=== PATIENT | male | born 1995 | race Caucasian/White ===

== ENCOUNTER → 2020-06-09 12:56 | Outpatient (CLI) | payer OTHER, SELFPAY ==
[2020-06-09] MEDS: COVID-19 VACC #1, MRNA(MOD) 100 MCG/0.5 ML VIAL IM (13:03)
== END ==
PROVIDERS: Family Provider Pediatrics; PCP Pediatrics; Visit Provider Internal Medicine
DX: Z23 Encounter for immunization (principal)
CPT/HCPCS: 0011A; 91301

== ENCOUNTER → 2020-07-07 16:01 | Outpatient (CLI) | payer OTHER, SELFPAY ==
[2020-07-07] MEDS: COVID-19 VACC #2, MRNA(MOD) 100 MCG/0.5 ML VIAL IM (16:14)
== END ==
PROVIDERS: Family Provider Pediatrics; PCP Pediatrics; Visit Provider Internal Medicine
DX: Z23 Encounter for immunization (principal)
CPT/HCPCS: 0012A; 91301

== ENCOUNTER 2021-02-05 09:23 | Emergency (ER) | payer OTHER, MEDICAID, SELFPAY ==
[2021-02-05] VITALS (9 sets, daily range): BP systolic 111–128; BP diastolic 61–79; PULSE 61–88; RESP 18–22; TEMP 36.7; O2SAT 95–99; BMI 23.0
--- NOTE | 2021-02-05 10:00 | ED_ITS ---
HPI - Allergic Reaction General Chief complaint: Allergic Reaction Stated complaint: Allergic reaction- brought by [facility] Time Seen by Provider: 02/05/21 09:42 Source: patient Mode of arrival: Wheelchair Limitations: no limitations History of Present Illness HPI narrative: The patient was recently vacationing in [place]. He sustained multiple insect bites. He was seen by a doctor there 2 days ago he was given an injection of dexamethasone, discharged on oral dexamethasone. He began using calamine lotion for ongoing itching. Once using the calamine he developed extensive rash. He stop the calamine. He took Benadryl last night and 5:00 a.m. this morning. He arrived home from [place] late last night. He presents now with significant erythema and edema in the periorbital area. He has no change in vision. He has no throat tightness or discomfort. He denies difficulty breathing. He has rash on his left flank. There is no other significant edema or rash. He has ongoing irritation from the insect bites. He has no fever, no URI symptoms. Related Data Allergies Allergy/AdvReac Type Severity Reaction Status Date / Time calamine Allergy Swelling Verified 02/05/21 09:55 of the Eye Review of Systems Review of Systems ROS Unobtainable: All systems reviewed & are unremarkable except as noted in HPI and below Patient History Medical History (Updated 02/05/21 @ 12:30 by Bonifacio Chan MD) Healthy male adult Social History Smoking Status: Never smoker Smoking Status: Never smoker alcohol intake frequency: holidays/special occasions only Substance Use Type: marijuana Exam Initial Vital Signs Initial Vital Signs: Vital Signs Pulse Rate 85 02/05/21 09:29 Blood Pressure 128/79 02/05/21 09:29 Pulse Oximetry 95 02/05/21 09:29 Const General: cooperative, comfortable, well developed and well groomed HENOK Face and sinus: edema (Bilateral periorbital erythema and edema, difficulty opening his eyes.) Mouth: oral mucosae normal Eyes Visual Figueroa: normal visual figueroa by confrontation Conjunctivae: conjunctivae normal Sclera: sclerae normal Cornea: corneas normal Pupils: PERRL EOM: EOM intact bilaterally Other: Vision is normal Neck Neck: No anterior neck swelling Resp Effort & Inspection: normal respiratory effort Auscultation: clear to auscultation bilaterally Cardio Rate: regular rate Rhythm: regular rhythm Heart Sounds: S1 normal and S2 normal GI Inspection: normal to inspection Back/Spine/Pelvis Back: normal to inspection Skin Other: Insect bites on his arm. Small area of urticaria on the left flank. Rashes ot herwise limited to his face. Course Course Course Narrative: The patient is on Decadron. I gave him Solu-Medrol 125 mg IV, IV Pepcid and IV Benadryl. The edema and erythema his face is declining, but not resolved. His airway remains intact. His lungs remain clear. Orders Ordered: Famotidine (Famotidine 20 Mg/2 Ml Vial) 20 mg IV NOW BRE Last Admin: 02/05/21 10:09 Dose: 20 mg Documented by: BRANDI Discontinued Medications Diphenhydramine HCl (Diphenhydramine 50 Mg/Ml Vial) 25 mg IV NOW ONE Stop: 02/05/21 09:58 Last Admin: 02/05/21 10:08 Dose: 25 mg Documented by: BRANDI Methylprednisolone (Methylprednisolone 125 Mg/2 Ml Vial) 40 mg IV NOW ONE Stop: 02/05/21 09:58 Last Admin: 02/05/21 10:08 Dose: 40 mg Documented by: BRANDI Vital Signs Vital signs: Vital Signs - 8 hr 02/05/21 09:29 02/05/21 09:30 02/05/21 09:44 Temperature 98.0 F Pulse Rate 85 83 88 Respiratory Rate 18 Blood Pressure 128/79 127/73 128/79 Pulse Oximetry 95 96 97 02/05/21 10:00 02/05/21 10:30 02/05/21 11:00 Temperature Pulse Rate 74 68 71 Respiratory Rate 20 21 22 Blood Pressure 118/69 117/72 117/70 Pulse Oximetry 97 99 98 02/05/21 11:30 02/05/21 12:00 Temperature Pulse Rate 70 61 Respiratory Rate 21 18 Blood Pressure 116/69 119/61 Pulse Oximetry 96 95 Discharge Plan Departure Patient Disposition: Home Clinical Impression: Allergic reaction Instructions: DI for Adverse Drug Reaction -- Allergic Activity Restrictions/Additional Instructions: Avoid calamine. Benadryl every 4 hours as needed for swelling or itching. Continue the Decadron prescribed in [place]. Expect the rash and swelling to slowly resolve. If you develop airway tightness or difficulty breathing return to the ER right away.
[2021-02-05] MEDS: methylPREDNISolone 125 MG/2 ML VIAL 40 MG IV (10:08)
[2021-02-05] MEDS: diphenhydrAMINE 50 MG/ML VIAL 25 MG IV (10:08)
[2021-02-05] MEDS: FAMOTIDINE 20 MG/2 ML VIAL IV (10:09)
== END 2021-02-05 12:37 | disposition home or self-care (01) ==
PROVIDERS: Emergency Provider Emergency Medicine; Family Provider Pediatrics
DX: R21 Rash and other nonspecific skin eruption (principal); T49.3X5A Adverse effect of emollients, demulcents and protectants, initial encounter
CPT/HCPCS: 36415; 96374; 96375; 99284; J1200; J2930

== ENCOUNTER → 2021-02-27 09:19 | Outpatient (CLI) | payer OTHER, MEDICAID, SELFPAY ==
[2021-02-27 11:47] LABS: Add Manual Diff / Slide Review NO; Basophils Absolute Auto 0 /uL (0-100); Basophils Percent Auto 0.3 % (0-2); Eosinophils Absolute Auto 200 /uL (0-450); Eosinophils Percent Auto 3.3 % (2-4); Hematocrit 44.4 % (41-53); Hemoglobin 15.3 g/dL (13.5-17.5); Lymphocytes Absolute Auto 1600 /uL (1100-4500); Lymphocytes Percent Auto 29.2 % (25-40); Mean Corpuscular HGB Conc 34.5 % (30-36); Mean Corpuscular Hemoglobin 30.9 PG (26-34); Mean Corpuscular Volume 89.5 fL (80-100); Monocytes Absolute Auto 400 /uL (0-900); Monocytes Percent Auto 6.6 % (3-14); Neutrophils Absolute Auto 3300 /uL (1500-7000); Neutrophils Percent Auto 60.6 % (50-75); Platelet Count 212 X10^3/uL (150-400); Red Blood Cell Count 4.96 X10^6/uL (4.5-5.9); Red Cell Distribution Width 12.5 % (11.6-14.8); White Blood Cell Count 5.4 X10^3/uL (4.5-11.0)
[2021-02-27 12:05] LABS: Alanine Aminotransferase 28 IU/L (<50); Albumin 3.7 g/dL (3.5-5.0); Albumin Globulin Ratio 1.5 (1.0-2.8); Alkaline Phosphatase 46 U/L (38-126); Aspartate Aminotransferase 24 IU/L (17-59); Bilirubin Total 0.2 mg/dL (0.2-1.3); Blood Urea Nitrogen 9 mg/dL (9-20); Calcium 8.7 mg/dL (8.4-10.2); Carbon Dioxide 30 mmol/L (22-32); Chloride 104 mmol/L (98-107); Estimated Glomerular Filt Rate > 60.0 mL/min (>60); Globulin 2.5 g/dL (1.7-4.1); Glucose 83 mg/dL (70-100); HEMOLYSIS 18 (0-50); Potassium 4.1 mmol/L (3.4-5.1); Sodium 139 mmol/L (137-145); Total Protein 6.2 g/dL (6.3-8.2)
[2021-02-27 12:20] LABS: Erythrocyte Sedimentation Rate 1 MM/HR (0-15)
== END ==
PROVIDERS: Family Provider Pediatrics; PCP Physician Assistant; Referring Provider Physician Assistant; Visit Provider Physician Assistant
DX: R53.83 Other fatigue (principal); M79.10 Myalgia, unspecified site
CPT/HCPCS: 36415; 80053; 85025; 85651

== ENCOUNTER → 2021-03-28 14:28 | Outpatient (CLI) | payer OTHER, MEDICAID, SELFPAY ==
[2021-03-28 16:24] LABS: Thyroid Stimulating Hormone 0.884 uIU/mL (0.47-4.68)
[2021-03-28 16:40] LABS: Folate 12.2 ng/mL (2.76-20.0); Vitamin B12 466 pg/mL (239-931)
== END ==
PROVIDERS: Family Provider Pediatrics; PCP Physician Assistant; Referring Provider Physician Assistant; Visit Provider Physician Assistant
DX: R20.2 Paresthesia of skin (principal)
CPT/HCPCS: 36415; 82607; 82746; 84443

== ENCOUNTER → 2021-04-14 08:09 | Outpatient (CLI) | payer OTHER, MEDICAID, SELFPAY ==
--- NOTE | 2021-04-14 08:10 | DI.MRI.S_ITS ---
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 After the administration of contrast, axial and sagittal T1 spin echo with fat saturation through the thoracic spine. COMPARISON: None. FINDINGS: Image quality: Excellent. Alignment and curvature: There is mild leftward curvature of the upper thoracic spine mild rightward curvature of the lower thoracic spine. Marrow: Marrow is of normal overall signal. No acute vertebral body compression fractures. Spinal cord: Visualized spinal cord is of normal signal and size, without abnormal enhancement. Paraspinous soft tissues: No paravertebral masses or abnormal enhancement. Disc space levels: Mild multilevel disc desiccation. No significant canal, nor foraminal stenosis. IMPRESSION: 1. Thoracic spinal curvature as above. 2. No neural impingement. 3. No cord signal abnormality. Dictated by: Litzy Ulrich M.D. on 04/14/2021 at 10:19 Approved by: Litzy Ulrich M.D. on 04/14/2021 at 10:21
--- NOTE | 2021-04-14 08:10 | DI.MRI.S_ITS ---
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 After the administration of contrast, axial and sagittal T1 spin echo with fat saturation through the cervical spine. COMPARISON: None. FINDINGS: Image quality: Excellent. Alignment and curvature: There is loss of normal cervical lordosis. Marrow: Marrow is normal in overall signal, without suspicious enhancement. Spinal cord: Visualized spinal cord has normal size and signal. No cerebellar tonsillar herniation. No abnormal intramedullary enhancement. Paraspinous soft tissues: No paravertebral masses or suspicious enhancement. C2-3: Mild disc height loss and desiccation. Mild left facet and uncovertebral hypertrophy. Congenital canal stenosis. There is overall mild canal stenosis. Moderate left foraminal stenosis. No right foraminal stenosis. C3-4: Congenital canal stenosis. Mild disc desiccation and diffuse disc bulge. Mild facet and uncovertebral hypertrophy. Moderate canal stenosis. Moderate left and mild right foraminal stenosis. C4-5: Congenital canal stenosis. Mild disc desiccation and diffuse disc bulge with small superimposed left posterolateral protrusion. Mild facet and uncovertebral hypertrophy. Moderate canal stenosis. Severe left and mild right foraminal stenosis. Left C5 nerve root compression. C5-6: Congenital canal stenosis. Mild disc height loss and desiccation. Mild diffuse disc bulge. Mild facet and uncovertebral hypertrophy bilaterally. Mild canal stenosis. Mild left foraminal stenosis. No right foraminal stenosis. C6-7: Congenital canal stenosis. Mild disc desiccation and diffuse disc bulge. Mild facet and uncovertebral hypertrophy. Mild canal stenosis. Mild bilateral foraminal stenosis. C7-T1: Mild facet and uncovertebral hypertrophy bilaterally. No significant canal, or foraminal stenosis. IMPRESSION: 1. 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 2. Multilevel canal stenoses, worst at C3-C4 and C4-C5, where there are moderate canal stenosis. 3. Multilevel foraminal stenoses, worst at C4-C5 where there is associated intraforaminal nerve root compression. 4. No cord signal abnormality. Dictated by: Litzy Ulrich M.D. on 04/14/2021 at 10:10 Approved by: Litzy Ulrich M.D. on 04/14/2021 at 10:18
--- NOTE | 2021-04-14 08:10 | DI.MRI.S_ITS ---
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 After the administration of contrast, axial and coronal VIBE with fat saturation through the brain. COMPARISON: [facility], CT, HEAD WITHOUT CONTRAST, 04/23/2008, 16:56. [facility], MR, MR CERVICAL SPINE WO/W CON, 04/14/2021, 8:47. [facility], MR, MR THORACIC SPINE WO/W CON, 04/14/2021, 9:10. FINDINGS: Image quality: This examination is limited by involuntary motion artifact. CSF spaces: Ventricles are normal in size and shape. Basal cisterns are patent. No extra-axial fluid collections. Brain: No intracranial bleeds or mass effects. Claros-white matter interface appears intact. No suspicious white matter lesions. No abnormal intracranial enhancement. Diffusion weighted images show no acute ischemic insults. Brainstem appears normal. Normal intravascular flow voids are present. Skull and face: Calvarial marrow signal is normal. Orbits appear normal. Sinuses: Sinuses and mastoids are clear. IMPRESSION: No abnormal T2 hyperintense white matter lesions can be seen. No imaging explanation is found for this patient's presenting symptoms. Dictated by: Chaparro Day M.D. on 04/14/2021 at 9:29 Approved by: Chaparro Day M.D. on 04/14/2021 at 9:32
== END ==
PROVIDERS: Family Provider Pediatrics; PCP Physician Assistant; Referring Provider Physician Assistant; Visit Provider Physician Assistant
DX: G83.24 Monoplegia of upper limb affecting left nondominant side (principal); M48.02 Spinal stenosis, cervical region; M50.31 Other cervical disc degeneration, high cervical region
CPT/HCPCS: 70553; 72156; 72157

== ENCOUNTER → 2022-01-25 09:46 | Outpatient (CLI) | payer OTHER, MEDICAID, SELFPAY ==
[2022-01-25 10:53] LABS: Add Manual Diff / Slide Review NO; Basophils Absolute Auto 0 /uL (0-100); Basophils Percent Auto 0.7 % (0-2); Eosinophils Absolute Auto 0 /uL (0-450); Eosinophils Percent Auto 1.1 % (2-4); Hematocrit 43.6 % (41-53); Hemoglobin 14.9 g/dL (13.5-17.5); Lymphocytes Absolute Auto 1400 /uL (1100-4500); Lymphocytes Percent Auto 32.7 % (25-40); Mean Corpuscular HGB Conc 34.2 % (30-36); Mean Corpuscular Hemoglobin 30.3 PG (26-34); Mean Corpuscular Volume 88.7 fL (80-100); Monocytes Absolute Auto 300 /uL (0-900); Monocytes Percent Auto 6.9 % (3-14); Neutrophils Absolute Auto 2500 /uL (1500-7000); Neutrophils Percent Auto 58.6 % (50-75); Platelet Count 205 X10^3/uL (150-400); Red Blood Cell Count 4.91 X10^6/uL (4.5-5.9); Red Cell Distribution Width 12.7 % (11.6-14.8); White Blood Cell Count 4.3 X10^3/uL (4.5-11.0)
[2022-01-25 11:07] LABS: Erythrocyte Sedimentation Rate 1 MM/HR (0-15)
[2022-01-25 11:10] LABS: Alanine Aminotransferase 20 IU/L (<50); Albumin 4.5 g/dL (3.5-5.0); Albumin Globulin Ratio 1.6 (1.0-2.8); Alkaline Phosphatase 49 U/L (38-126); Aspartate Aminotransferase 26 IU/L (17-59); BUN Creatinine Ratio 20.8 (6-22); Bilirubin Total 0.6 mg/dL (0.2-1.3); Blood Urea Nitrogen 16 mg/dL (9-20); Calcium 8.8 mg/dL (8.4-10.2); Carbon Dioxide 30 mmol/L (22-32); Chloride 100 mmol/L (98-107); Cholesterol 112 mg/dL (140-199); Estimated Glomerular Filt Rate > 60 mL/min (>60); Globulin 2.8 g/dL (1.7-4.1); Glucose 86 mg/dL (70-100); HDL Cholesterol 38 mg/dL (40-60); HEMOLYSIS < 15 (0-50); LDL Cholesterol Calculated 63 mg/dL (<100); Potassium 3.9 mmol/L (3.4-5.1); Sodium 138 mmol/L (137-145); Total Protein 7.3 g/dL (6.3-8.2); Triglycerides 53 mg/dL (35-150)
== END ==
PROVIDERS: Family Provider Pediatrics; PCP Family Medicine; Referring Provider Family Medicine; Visit Provider Family Medicine
DX: Z13.29 Encounter for screening for other suspected endocrine disorder (principal); L50.3 Dermatographic urticaria; Z13.220 Encounter for screening for lipoid disorders
CPT/HCPCS: 36415; 80053; 80061; 84443; 85025; 85651